=== PATIENT | female | born 1950 | race Caucasian/White ===

== ENCOUNTER 2024-04-03 13:59 | Outpatient (CLI) | payer OTHER ==
[2024-04-03 15:37] LABS: Hematocrit 36.1 % (34.9-44.5); Hemoglobin 12.2 g/dL (12.0-15.5); Mean Corpuscular HGB CONC 33.8 g/dL (32.0-36.0); Mean Corpuscular Hemoglobin 30.2 pg (27.0-33.0); Mean Corpuscular Volume 89.4 fL (81.6-98.3); Mean Platelet Volume 9.9 fL (7.4-10.4); Platelet Count 318 10x3/uL (150-450); RBC Distribution Width 13.3 % (11.5-14.5); Red Blood Cell (RBC) Count 4.04 10x6/uL (3.90-5.03); White Blood Cell (WBC) Count 11.1 10x3/uL (3.5-10.5)
[2024-04-03 16:18] LABS: Anion Gap 15 mmol/L (10-20); BUN (Urea Nitrogen) 22 mg/dL (9.8-20.1); Calc. Creatinine Clearance 0 mL/min (70-130); Calcium 9.8 mg/dL (7.8-10.44); Carbon Dioxide 22 mmol/L (23-31); Chloride 108 mmol/L (98-107); Estimated GFR 45; Glucose 175 mg/dL (83-110); Potassium 4.2 mmol/L (3.5-5.1); Sodium 141 mmol/L (136-145)
== END 2024-04-03 14:00 | disposition home or self-care (01) ==
LOC: LABBT 13:59
PROVIDERS: ATTEND Orthopaedic Surgery
DX: Z01.818 Encounter for other preprocedural examination (principal); S83.281A Other tear of lateral meniscus, current injury, right knee, initial encounter; Z98.890 Other specified postprocedural states
CPT/HCPCS: 80048; 85027; 93005; 93010

== ENCOUNTER 2024-04-07 08:43 | Day surgery (SDC) | payer OTHER ==
[2024-04-03 15:20] VITALS: BMI 26.6
[2024-04-07] MEDS ORDERED: Scopolamine 1 mg/72 hour Patch ONE (09:42)
[2024-04-07] MEDS ORDERED: Sodium Chloride 0.9% 100 ML ONE (09:43)
[2024-04-07] MEDS ORDERED: Acetaminophen 500 MG TAB ONE (09:43)
[2024-04-07] MEDS ORDERED: Famotidine/PF 20 mg/2ml Vial ONE (09:43)
[2024-04-07] MEDS ORDERED: CEFAZOLIN 2 GM VIAL ONE (09:43)
[2024-04-07] MEDS ORDERED: fentaNYL PF 100 MCG/2 ML SYRINGE ONE (11:30)
[2024-04-07] MEDS ORDERED: PROPOFOL 20 ML ONE (11:30)
[2024-04-07] MEDS ORDERED: Ondansetron PF 4 MG/2 ML Vial ONE ×2 (11:46→11:54)
[2024-04-07] MEDS ORDERED: ePHEDrine Sulfate 50 MG/10 ML VIAL ONE (11:46)
[2024-04-07] MEDS ORDERED: Dexamethasone 4 mg/ml Vial ONE ×2 (11:46→11:54)
[2024-04-07] MEDS ORDERED: PHENYLEPHRINE-NS 100 MCG/ML 10 ML SYRINGE ONE (11:48)
[2024-04-07] MEDS ORDERED: fentaNYL 50 mcg/mL 1 mL Vial ONE (11:59)
[2024-04-07] MEDS ORDERED: Bupivacaine PF 0.5% 30 ML VIAL ONE (12:52)
[2024-04-07] MEDS ORDERED: EPINEPHrine 1 MG/ML VIAL ONE (12:52)
[2024-04-07] MEDS ORDERED: oxyCODONE 5 MG TAB ONE (14:17)
== END 2024-04-07 15:20 | disposition home or self-care (01) ==
LOC: SDC 08:43
PROVIDERS: ATTEND Orthopaedic Surgery
PROC: 0SBC4ZZ Excision of Right Knee Joint, Percutaneous Endoscopic Approach (ICD-10-PCS; principal; 2024-04-07)
PROC: 0SBC4ZZ Excision of Right Knee Joint, Percutaneous Endoscopic Approach (ICD-10-PCS; 2024-04-07)
DX: S83.271A Complex tear of lateral meniscus, current injury, right knee, initial encounter (principal); S83.241A Other tear of medial meniscus, current injury, right knee, initial encounter; E11.9 Type 2 diabetes mellitus without complications; H91.93 Unspecified hearing loss, bilateral; I10 Essential (primary) hypertension; Z79.899 Other long term (current) drug therapy; Z98.890 Other specified postprocedural states; X58.XXXA Exposure to other specified factors, initial encounter
CPT/HCPCS: 29880; J0171; J0665; J1100; J2405; J2704; J3010; J3490; S0028